=== PATIENT | female | born 1975 | race Caucasian/White ===

== ENCOUNTER 2017-04-10 23:13 | Emergency (ER) | payer MEDICAID ==
[~2017-04-10] VITALS: Ht 162.6 cm; Wt 76.9 kg
[2017-04-11 02:37] VITALS: BP 122/74
[2017-04-11] MEDS ORDERED: CLON-529 PO (02:38)
== END 2017-04-11 02:42 | disposition home or self-care (01) ==
LOC: ER 23:14
DX: Z76.0 Encounter for issue of repeat prescription (principal); F11.23 Opioid dependence with withdrawal
CPT/HCPCS: 99283

== ENCOUNTER 2023-10-16 15:17 | Emergency (ER) | payer MEDICAID ==
[~2023-10-16] VITALS: Ht 162.6 cm; Wt 84.2 kg
[~2023-10-16 15:17] MED LIST: CLON-529 PO
[2023-10-16 15:19] VITALS: BP 130/85; PULSE 102; TEMP 98.6; O2SAT 100
[2023-10-16] MEDS ORDERED: ketorolac trometh. 30mg/ml inj. IM ONE (15:35)
[2023-10-16] MEDS ORDERED: BENZ7GEL8 DT (15:37)
[2023-10-16] MEDS ORDERED: AMOX-117 PO (15:37)
[2023-10-16 16:16] VITALS: RESP 17
[2023-10-16] MEDS: ketorolac tromethamine 15mg/ml inj. IM ONE (16:16)
== END 2023-10-16 16:39 | disposition home or self-care (01) ==
LOC: ER 15:17
DX: K04.7 Periapical abscess without sinus (principal); F11.90 Opioid use, unspecified, uncomplicated; Z79.2 Long term (current) use of antibiotics; Z79.899 Other long term (current) drug therapy
CPT/HCPCS: 96372; 99283; J1885

== ENCOUNTER 2024-05-17 10:49 | Outpatient (CLI) | payer MEDICAID ==
[~2024-05-17 10:49] MED LIST changes: +BENZ7GEL8 DT
== END 2024-05-17 23:59 | disposition home or self-care (01) ==
LOC: RAD 10:49
PROVIDERS: ATTEND Physician Assistant
DX: F11.20 Opioid dependence, uncomplicated (principal)
CPT/HCPCS: 93005